=== PATIENT | female | born 1955 | race Caucasian/White ===

== ENCOUNTER → 2023-04-14 | Outpatient (CLI) | payer BC ==
--- NOTE | 2023-04-14 14:50 | XR ---
EXAMINATION TYPE: XR chest 2V DATE OF EXAM: 04/14/2023 COMPARISON: 09/26/2015 INDICATION: COPD TECHNIQUE: Frontal and lateral views of the chest are obtained. FINDINGS: The heart size is normal. The pulmonary vasculature is normal. The lungs are clear. IMPRESSION: 1. No acute pulmonary process.
== END | disposition home or self-care (01) ==
LOC: RADXRMAIN 14:24
PROVIDERS: ATTEND Family Medicine
DX: J44.9 Chronic obstructive pulmonary disease, unspecified (principal)
CPT/HCPCS: 71046

== ENCOUNTER → 2023-05-12 | Outpatient (CLI) | payer MEDICARE ==
--- NOTE | 2023-05-12 08:46 | CTL ---
IMPRESSION: 1. Masslike area of attenuation in the region of the lingula is likely related to parenchymal scarrin g however I cannot exclude malignancy. PET CT is recommended for further evaluation. FOLLOW UP CT CHEST RECOMMENDATION: Recommend PET/CT. CT LUNG RAD: LUNG RAD CATEGORY 4A suspicious
== END | disposition home or self-care (01) ==
LOC: RADCTMAIN 06:55
PROVIDERS: ATTEND Family Medicine
DX: Z12.2 Encounter for screening for malignant neoplasm of respiratory organs (principal); F17.210 Nicotine dependence, cigarettes, uncomplicated
CPT/HCPCS: 71271

== ENCOUNTER → 2023-05-12 | Outpatient (CLI) | payer MEDICARE ==
--- NOTE | 2023-05-12 07:47 | BD ---
EXAMINATION TYPE: Axial Bone Density DATE OF EXAM: 05/12/2023 CLINICAL HISTORY: 68 years old Female. ICD-10 CODE: Z78.0 XIAO LEMUS Height: 62" Weight: 129.7lbs FRAX RISK QUESTIONS: Alcohol (3 or more units per day): Yes Family History (Parent hip fracture): No Glucocorticoids (More than 3mos): No (Ex: prednisone, prednisolone, methylprednisolone, dexamethasone, and hydrocortisone). History of Fracture in Adulthood: Yes, toe Secondary Osteoporosis: 1. Type 1 Diabetes: No 2. Hyperthyroidism: No 3. Menopause before 45: Unknown 4. Malnutrition: No 5. Chronic liver disease: No Rheumatoid Arthritis: No Current Tobacco Use: Yes RISK FACTORS HISTORY OF: Hip Fracture (Right/Left): No Spine Fracture: No History of Wrist Fracture: No Surgery to Spine/Hip(right/left)/Wrist (right/left): No MEDICATIONS: Thyroid Medications: No Osteoporosis Medications: No EXAM MEASUREMENTS: Bone mineral densitometry was performed using the [employer] System. Bone mineral density as measured about the Lumbar spine is: ----- L1-L4(G/cm2): 1.319 T Score Values are as follows: ----- L1: 1.4 ----- L2: 0.3 ----- L3: 1.5 ----- L4: 1.3 ----- L1-L4: 1.2 Z Score Values are as follows: ----- L1: 3.2 ----- L2: 2.2 ----- L3: 3.4 ----- L4: 3.1 ----- L1-L4: 3.0 Baseline @MPH Bone mineral density about the R hip (g/cm2): 0.924 Bone mineral density about the L hip (g/cm2): 0.847 T Score values are as follows: -----R Neck: -1.2 -----L Neck: -1.7 -----R Total: -0.7 -----L Total: -1.3 Z Score values are as follows: -----R Neck: 0.5 -----L Neck: 0.0 -----R Total: 0.8 -----L Total: 0.2 Baseline @MPH FRAX%s: The graph provided illustrates a 12.8% chance for a major osteoporotic fx and a 3.7% chance f or the hips probability for fx in 10 years time. IMPRESSION: Osteopenia (T Score between -2.5 and -1). There is slightly increased risk of fracture and the patient may be considered for treatment. Re-Screen 2-5 years. NOTE: T-SCORE=SD OF THE YOUNG ADULT MEAN.
--- NOTE | 2023-05-12 08:07 | US ---
EXAMINATION TYPE: US Aorta Screening DATE OF EXAM: 05/12/2023 COMPARISON: CT CLINICAL INDICATION: Female, 68 years old with history of Z13.6 CARDIOVASCULAR DISORDER; AAA screenin g TECHNIQUE: Multiple sonographic images of the abdominal aorta are obtained. FINDINGS: EXAM MEASUREMENTS: Abdominal Aorta: Proximal: 1.9 x 1.8 cm Mid: 1.9 x 1.8 cm Distal: 1.5 x 1.5 cm Bifurcation: Right iliac: 0.9 x 0.8 cm Left iliac: 0.8 x 0.7 cm IMPRESSION: No evidence for aortic aneurysm.
--- NOTE | 2023-05-13 11:10 | MM ---
Reason for Exam: Screening (asymptomatic). Last mammogram was performed 9 year(s) and 7 month(s) ago. Patient History: Menarche at age 13. First Full-Term at age 15. Postmenopausal. Risk Values: Rosy 5 year model risk: 1.2%. NCI Lifetime model risk: 4.0%. Prior Study Comparison: 10/25/2013 Bilateral Screening Mammogram, [facility]. Tissue Density: The breast tissue is heterogeneously dense. This may lower the sensitivity of mammography. Findings: There is no suspicious group of microcalcifications or new suspicious mass in either breast. There is an asymmetric nodular density in the lower medial margin of the right breast. Benign calcifications. Overall Assessment: Incomplete: need additional imaging evaluation, BI-RAD 0 Management: Special View Mammogram of the right breast. Patient should continue monthly self-breast exams. A clinical breast exam by your physician is recommended on an annual basis. This exam should not preclude additional follow-up of suspicious palpable abnormalities. Note on Rosy scores and lifetime risk: 1. A Rosy score greater than 3% is considered moderate risk. If this is the case, consider specialist referral to assess eligibility for a risk reducing agent. 2. If overall lifetime risk for the development of breast cancer is 20% or higher, the patient may qualify for future screening with alternating mammogram and breast MRI. Electronically signed and approved by: George Gonzalez M.D. Radiologis
== END | disposition home or self-care (01) ==
LOC: RADBDWWP 06:56
PROVIDERS: ATTEND Family Medicine
DX: Z12.31 Encounter for screening mammogram for malignant neoplasm of breast (principal); M85.89 Other specified disorders of bone density and structure, multiple sites; I25.10 Atherosclerotic heart disease of native coronary artery without angina pectoris; Z78.0 Asymptomatic menopausal state; Z13.6 Encounter for screening for cardiovascular disorders; Z87.891 Personal history of nicotine dependence
CPT/HCPCS: 76706; 77063; 77067; 77080

== ENCOUNTER → 2023-05-19 | Outpatient (CLI) | payer MEDICARE ==
--- NOTE | 2023-05-19 07:51 | MM ---
Reason for Exam: Additional evaluation requested from abnormal screening. Last screening mammogram was performed less than 1 month ago. Patient History: Menarche at age 13. First Full-Term at age 15. Postmenopausal. Risk Values: Rosy 5 year model risk: 1.2%. NCI Lifetime model risk: 4.0%. Prior Study Comparison: 10/25/2013 Bilateral Screening Mammogram, [facility]. 05/12/2023 Bilateral MG 3D screening mammo w/cad, [facility]. Tissue Density: Right: The breast tissue is heterogeneously dense. This may lower the sensitivity of mammography. Findings: Analyzed By CAD. An 8 mm isodense to low density nodularity persists on the spot 3-D MLO and 3 lateral views at the 5:00 position middle depth. It is less defined on spot 3-D CC view. Further ultrasound evaluation is recommended. Overall Assessment: Incomplete: need additional imaging evaluation, BI-RAD 0 Management: Diagnostic Breast Ultrasound of the right breast. Electronically signed and approved by: Gareth Burton M.D. Radiologist
--- NOTE | 2023-05-19 08:27 | USB ---
Patient History: Menarche at age 13. First Full-Term at age 15. Postmenopausal. Risk Values: Rosy 5 year model risk: 1.2%. NCI Lifetime model risk: 4.0%. Technique: Method: Targeted. Prior Study Comparison: 10/25/2013 Bilateral Screening Mammogram, [facility]. 05/12/2023 Bilateral MG 3D screening mammo w/cad, [facility]. Findings: The lower inner quadrant of the right breast, the axilla of the right breast and the retroareolar of the right breast were scanned. Targeted ultrasound 4 to 6:00 position right breast including scanning of the subareolar region and axilla. There is a cyst cluster or mildly complex cyst measuring 9 mm at the 5:00 position, 6 cm from the nipple, likely mammographic correlate. Six-month follow-up mammogram recommended. Overall Assessment: Probably benign, BI-RAD 3 Management: Diagnostic Mammogram of the right breast in 6 months. A clinical breast exam by your physician is recommended on an annual basis and results should be correlated with mammographic findings. This exam should not preclude additional follow-up of suspicious palpable abnormalities. Results were given to the patient verbally at the time of exam. Electronically signed and approved by: Gareth Burton M.D. Radiologist
== END | disposition home or self-care (01) ==
LOC: RADMAMWWP 07:22
PROVIDERS: ATTEND Family Medicine
DX: R92.331 Mammographic heterogeneous density, right breast (principal); R92.8 Other abnormal and inconclusive findings on diagnostic imaging of breast; Z78.0 Asymptomatic menopausal state
CPT/HCPCS: 77065; 76642; G0279; 77061

== ENCOUNTER → 2023-05-22 | Outpatient (CLI) | payer MEDICARE ==
--- NOTE | 2023-05-25 16:00 | PE ---
EXAMINATION TYPE: PET CT fusion skull to thigh DATE OF EXAM: 05/22/2023 COMPARISON: Low-dose CT chest 05/12/2023 Prior PET/CT: None HISTORY: Solitary pulmonary nodule. TECHNIQUE: Following the intravenous administration of 12.64 mCi of F-18 FDG, whole body images are performed from the skull base to the midthigh. Images are reviewed on the computer in the coronal, a xial, and sagittal planes. Reconstructed rotating images are created on independent workstation and reviewed on the computer. A localization and attenuation correction CT is performed in conjunction with the PET scan. DLP: 195.99 mGycm SCAN: Initial Blood glucose: 103 mg/dL Average Mediastinum SUV: 2.33 Average Liver SUV: 2.84 FINDINGS: NECK: There is mild uptake at the fossa of Rosenmuller on the right, image 19, SUV 3.19. Small poste rior reticular lymph node may be present on the right, image 19, SUV 3.03. There is marked uptake within the left parotid gland. Metastatic lymph node should be considered, lorraine kameron salivary tumor is within the differential. SUV 7.75. THORAX: There is a subcarinal lymph node with an SUV of 5.34. Image 87. Two distal right peribronchial and/or right hilar lymph nodes, image 85 SUV 3.78 laterally slightly m ore medial 3.84. At the density along the major fissure the left base, image 107, has an SUV of 1.27. This is nonspeci fic and can be related to inflammatory changes. ABDOMEN: No abnormal uptake PELVIS: No abnormal uptake OSSEOUS STRUCTURES: No abnormal uptake LOCALIZATION CT: There are some scattered diverticular changes within the sigmoid colon. COMPARISON: None IMPRESSION: 1. Focus of intense uptake within the left parotid gland. Primary or metastatic neoplasm should be co nsidered. 2. There is mild increased signal within the right fossa of Rosenmuller and right postauricular regio n. Metastatic disease is not excluded. 3. Subcarinal and right hilar adenopathy with abnormal uptake suspicious for metastatic disease. 4. The density within the left lung base has intermediate signal which is not specific. Benign and ma lignant etiologies should be considered.
== END | disposition home or self-care (01) ==
LOC: RADPETMAIN 09:45
PROVIDERS: ATTEND Family Medicine
DX: J98.4 Other disorders of lung (principal); R91.8 Other nonspecific abnormal finding of lung field; R91.1 Solitary pulmonary nodule; R59.0 Localized enlarged lymph nodes
CPT/HCPCS: 78815; A9552

== ENCOUNTER 2023-06-18 08:48 | Day surgery (SDC) | payer MEDICARE ==
[2023-06-18 09:25] VITALS: BP 126/76; PULSE 87; RESP 18; TEMP 97.8
--- NOTE | 2023-06-18 10:27 | US ---
EXAMINATION TYPE: US discontinued FNA panel DATE OF EXAM: 06/18/2023 10:14 AM CLINICAL INDICATION:Female, 68 years old with history of D37.030; COMPARISON: Pet/CT 05/22/2023. ATTENDING: Dr. Julian Hernandez PROCEDURE: Informed consent was obtained. The risks and benefits of the procedure were discussed with the patien t. The site was marked. Timeout procedure was performed Ultrasound imaging of the thyroid demonstrates vascular mass in the inferior margin of the lesion in the direct path of biopsy. The procedure was canceled at that time. IMPRESSION: Canceled biopsy of the left inferior parotid lesion which was FDG avid on PET. 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 The lesion had extensive vascularity around the path of biopsy. It was d etermined at that time to cancel the procedure. Given no stability of this lesion demonstrated on eliana ging and a single noncontrast only CT, a follow-up with CT neck with IV contrast may be of benefit in 3 months for stability may be of benefit. Patient was agreeable to this plan.
== END 2023-06-18 10:10 | disposition home or self-care (01) ==
LOC: RADPROMAIN 08:48
PROVIDERS: ATTEND Internal Medicine Hematology & Oncology
DX: Z53.8 Procedure and treatment not carried out for other reasons (principal); K11.8 Other diseases of salivary glands
CPT/HCPCS: 76536

== ENCOUNTER → 2023-11-04 | Outpatient (CLI) | payer MEDICARE ==
--- NOTE | 2023-11-05 08:00 | XR ---
EXAMINATION TYPE: XR Hip Bilateral Complete DATE OF EXAM: 11/04/2023 CLINICAL HISTORY: pain TECHNIQUE: AP and frogleg views of the bilateral hips are obtained. COMPARISON: None. FINDINGS: There is no acute fracture/dislocation evident. The joint space appears within normal li mits. The overlying soft tissue appears unremarkable. IMPRESSION: 1. There is no acute fracture or dislocation. ICD 10 NO FRACTURE, INITIAL EVALUATION
--- NOTE | 2023-11-05 08:00 | XR ---
EXAMINATION TYPE: XR lumbosacral spine min 4V DATE OF EXAM: 11/04/2023 CLINICAL HISTORY: pain COMPARISON: NONE TECHNIQUE: Frontal, lateral, and oblique images of the lumbar spine are obtained. FINDINGS: There are 5 lumbar type vertebral bodies identified. The lumbar spine shows satisfactory alignment without evidence of acute fracture or dislocation. Vertebral body heights are within normal limits. Mild degenerative disc space narrowing and spondylosis and facet joint arthropathy. The ov erlying soft tissue appears unremarkable. IMPRESSION: No acute fracture or dislocation is seen in the lumbar spine.ICD 10 NO FRACTURE, INITIAL EVALUATION
== END | disposition home or self-care (01) ==
LOC: RADXRMAIN 14:52
PROVIDERS: ATTEND Family Medicine
DX: M51.36 Other intervertebral disc degeneration, lumbar region (principal); M16.9 Osteoarthritis of hip, unspecified
CPT/HCPCS: 72110; 73521

== ENCOUNTER → 2024-05-31 | Outpatient (CLI) | payer MEDICARE ==
--- NOTE | 2024-05-31 11:37 | MM ---
Reason for Exam: Follow-up at short interval from prior study. Last screening mammogram was performed 12 month(s) ago. Patient History: Menarche at age 13. First Full-Term at age 15. Postmenopausal. Risk Values: Rosy 5 year model risk: 1.2%. NCI Lifetime model risk: 3.9%. Tissue Density: The breasts are heterogeneously dense, which may obscure small masses. Findings: Analyzed By CAD. Special cc rolled lateral view demonstrates 11 mm asymmetry 6.7 cm from nipple is thought to be in the medial upper aspect of the breast. No suspicious areas in the left breast. Overall Assessment: Incomplete: need additional imaging evaluation, BI-RAD 0 Management: Diagnostic Breast Ultrasound of the right breast. Results were given to the patient verbally at the time of exam. Patient should continue monthly self-breast exams. A clinical breast exam by your physician is recommended on an annual basis. This exam should not preclude additional follow-up of suspicious palpable abnormalities. Note on Rosy scores and lifetime risk: 1. A Rosy score greater than 3% is considered moderate risk. If this is the case, consider specialist referral to assess eligibility for a risk reducing agent. 2. If overall lifetime risk for the development of breast cancer is 20% or higher, the patient may qualify for future screening with alternating mammogram and breast MRI. [facility], , 05/31/2024 11:34 AM. Electronically signed and approved by: Julian Hernandez DO
--- NOTE | 2024-05-31 12:24 | USB ---
Patient History: Menarche at age 13. First Full-Term at age 15. Postmenopausal. Risk Values: Rosy 5 year model risk: 1.2%. NCI Lifetime model risk: 3.9%. Technique: Method: Targeted. Prior Study Comparison: 10/25/2013 Bilateral Screening Mammogram, [facility]. 05/12/2023 Bilateral MG 3D screening mammo w/cad, [facility]. 05/19/2023 Right MG 3D work up w/cad RT, [facility]. Findings: The upper inner quadrant of the right breast, the axilla of the right breast and the retroareolar of the right breast were scanned. Technique utilized:US breast limited RT Image; Ultrasound imaging of: Area of concern inner upper, retroareolar region and axilla. Cyst with posterior acoustic shadowing at 3:00 3 cm from the nipple. Hyperechoic tissue at 12:00 7 cm from nipple possibly focal fat. Overall Assessment: Benign, BI-RAD 2 Management: Screening Mammogram of both breasts in 1 year. A clinical breast exam by your physician is recommended on an annual basis and results should be correlated with mammographic findings. This exam should not preclude additional follow-up of suspicious palpable abnormalities. Results were given to the patient verbally at the time of exam. [facility], , 05/31/2024 12:14 PM. Electronically signed and approved by: Julian Hernandez DO
== END | disposition home or self-care (01) ==
LOC: RADMAMWWP 11:13
PROVIDERS: ATTEND Family Medicine
DX: R92.8 Other abnormal and inconclusive findings on diagnostic imaging of breast (principal); R92.333 Mammographic heterogeneous density, bilateral breasts; Z78.0 Asymptomatic menopausal state
CPT/HCPCS: 77062; 77066